=== PATIENT | male | born 1990 | race African-American/Black ===

== ENCOUNTER 2017-08-19 17:36 | Emergency (ER) | payer OTHER ==
[~2017-08-19] VITALS: Ht 160 cm; Wt 59.1 kg
[2017-08-19] MEDS ORDERED: NAPROXEN500 MG PO (21:04)
[2017-08-19] MEDS ORDERED: FLEXERIL10 MG PO (21:04)
[2017-08-19 21:50] VITALS: BP 130/92
== END 2017-08-19 21:52 | disposition home or self-care (01) ==
LOC: EME 17:36
DX: S39.012A Strain of muscle, fascia and tendon of lower back, initial encounter (principal); M54.2 Cervicalgia; V49.50XA Passenger injured in collision with unspecified motor vehicles in traffic accident, initial encounter; Y92.410 Unspecified street and highway as the place of occurrence of the external cause
CPT/HCPCS: 72100; 99281; 99284; J1885